=== PATIENT | male | born 1960 | race Caucasian/White ===

== ENCOUNTER 2021-07-28 21:27 | Inpatient (IN) | payer MEDICARE, OTHER ==
[~2021-07-28] VITALS: Ht 180.3 cm; Wt 88.9 kg
--- NOTE | 2021-07-28 21:50 | NUR ---
PATIENT BIB [facility] FROM [facility] ON A 5150 HOLD TO BE MEDICALLY CLEARED TO BE ADMITTED TO [facility].
[2021-07-28] MEDS ORDERED: LOSA50TA39 PO (22:06)
[2021-07-28] MEDS ORDERED: FOLI1TAB94 PO (22:06)
[2021-07-28] MEDS ORDERED: DULO60CA45 PO (22:06)
[2021-07-28] MEDS ORDERED: QUET25TA PO (22:06)
[2021-07-28] MEDS ORDERED: MAGN400O6 PO (22:06)
[2021-07-28] MEDS ORDERED: MULT-213 PO (22:06)
[2021-07-28] MEDS ORDERED: GABA-532 PO (22:06)
[2021-07-28] MEDS ORDERED: LORA2TAB95 PO (22:06)
[2021-07-28] MEDS ORDERED: HYDR-3972 PO (22:06)
[2021-07-28] MEDS ORDERED: OXYC30TA2 PO (22:06)
[2021-07-28] MEDS ORDERED: ACET-73 PO (22:06)
[2021-07-28] MEDS ORDERED: THIA100T74 PO (22:06)
--- NOTE | 2021-07-28 22:51 | NUR ---
Transfered to [facility] via [facility] ambulance team with no distress noted.
--- NOTE | 2021-07-28 22:53 | NUR ---
Patient medically cleared. Pt. admitted to MHU, room 145B , under care of Dr. Stokes, and Dr. Tate. Belongs List completed.
[2021-07-28] MEDS ORDERED: MAGNESIUM HYDROXIDE 30 ML LIQUID UDC PO PRN (23:15)
[2021-07-28] MEDS ORDERED: MAG HYDROX/AL HYDROX/SIMETH 30 ML LIQUID UDC PO PRN (23:15)
[2021-07-28] MEDS ORDERED: TEMAZEPAM 7.5 MG CAPSULE PO PRN (23:15)
[2021-07-28 23:45] VITALS: BP 136/104
[2021-07-29] MEDS: LORAZEPAM 1 MG TABLET PO PRN ×4 (05:25→23:42)
[2021-07-29 07:30] VITALS: BP 161/103
[2021-07-29 07:59] LABS: BILIRUBIN,TOTAL 0.3 mg/dL (0.2-1.0); POTASSIUM 3.9 mmol/L (3.5-5.1); TOTAL PROTEIN, SERUM 7.9 g/dL (6.4-8.2)
[2021-07-29] MEDS ORDERED: [UNRECOGNIZED DRUG - CODE] PO (10:17)
[2021-07-29] MEDS: FOLIC ACID 1 MG TABLET PO SCH (11:11)
[2021-07-29] MEDS: OXYCODONE HCL 10 MG TAB.SR.12H PO SCH ×2 (11:12→20:08)
[2021-07-29] MEDS: LOSARTAN POTASSIUM 50 MG TABLET PO SCH ×2 (11:12→20:05)
[2021-07-29] MEDS: MULTIVIT, IRON, MIN NO. 8, FA TABLET PO SCH (11:12)
[2021-07-29] MEDS: THIAMINE HCL 100 MG TABLET PO SCH (11:13)
--- NOTE | 2021-07-29 14:28 | NUR ---
VISHNU Family Contact: SW met and spoke with pt's Jennie Santizo ([phone]) and discussed treatment and discharge plan.
--- NOTE | 2021-07-29 14:28 | NUR ---
VISHNU Initial Discharge Plan: [place] resides [place] [address] [place] [address] ([phone]) with his Jennie Santizo ([phone]). Pt would like to return home upon discharge. VISHNU will continue to work with pt, family, and MD to ensure a safe and proper discharge plan.
--- NOTE | 2021-07-29 14:30 | NUR ---
Firearms Report: Gleason Operator completed and submitted a [employer] firearms report for 5150danger to himself certifications. A copy of report has been placed in patient chart.
--- NOTE | 2021-07-29 14:30 | NUR ---
Brief Substance Abuse Intervention: Patient was provided with a brief substance abuse intervention and referred to the following substance abuse programs: [facility] Substance Abuse Self-helpline ([phone]); [facility] [address] [place] [address] ([phone]); [facility] [address] [facility] [address] ([phone]); [facility] ([phone]); [facility] ([phone]); [facility] ([phone]); [facility] ([phone]).
[2021-07-29] MEDS ORDERED: Medication Not On Formulary EA (Oxycodone Hcl 30 MG) PO SCH (17:00)
[2021-07-29] MEDS ORDERED: GABAPENTIN 300 MG CAPSULE PO SCH (17:00)
[2021-07-29 17:15] VITALS: BP 144/91
--- NOTE | 2021-07-29 18:51 | NUR ---
Patient anxious at the beginning of the shift regarding medications. Given anxiety medication x2 during shift. visited patient. Complaint with medications.
[2021-07-29 20:00] VITALS: BP 156/95
[2021-07-29] MEDS ORDERED: TRAZODONE 50 MG TABLET PO SCH (21:00)
[2021-07-29] MEDS ORDERED: TRAZODONE 50 MG TABLET PO ONE (21:00)
[2021-07-29] MEDS ORDERED: TRAZODONE 100 MG TABLET PO ONE (21:00)
[2021-07-30] MEDS: HYDROCODONE/APAP 5-325MG TABLET PO PRN ×2 (01:09→23:07)
[2021-07-30] MEDS ORDERED: TEMAZEPAM 7.5 MG CAPSULE PO PRN (02:00)
--- NOTE | 2021-07-30 05:07 | NUR ---
Restoril HS repeated dose order obtained from Dr. Stokes,. administered at around 0205. Per pharmacist karyn Matias to give after scanning and clicking original HSPRN entry on eMAR since HS repeated dose order was still unverified at the time.
[2021-07-30 08:20] VITALS: BP 149/96
[2021-07-30] MEDS: LOSARTAN POTASSIUM 50 MG TABLET PO SCH ×2 (08:24→20:07)
[2021-07-30] MEDS: DULOXETINE 60 MG CAPSULE.DR PO SCH (08:24)
[2021-07-30] MEDS: FOLIC ACID 1 MG TABLET PO SCH (08:24)
[2021-07-30] MEDS: THIAMINE HCL 100 MG TABLET PO SCH (08:25)
[2021-07-30] MEDS: MULTIVIT, IRON, MIN NO. 8, FA TABLET PO SCH (08:25)
[2021-07-30] MEDS: OXYCODONE HCL 10 MG TAB.SR.12H PO SCH ×2 (09:13→20:08)
[2021-07-30] MEDS: LORAZEPAM 1 MG TABLET PO PRN (09:46)
--- NOTE | 2021-07-30 11:09 | NUR ---
Gps/Bus Girl- Emotionally labile, crying spells noted, verbalized feelings of being depressed. Complained of chronic pain on his feet, oxycodone eases his pain but not completely resolved. Attend his group therapy this am. Complained of feeling anxious ,Ativan 1 mg po. was able to relaxed and stayed in his room to rest part of his morning. Wants to talk to Dr Stokes
--- NOTE | 2021-07-30 15:04 | NUR ---
Gps/Head Usher- came in to visit, and brought in electric shaver, placed in his locker.
[2021-07-30] MEDS: ACETAMINOPHEN 325 MG TABLET PO PRN (15:22)
[2021-07-30] MEDS: AMLODIPINE 5 MG TABLET PO SCH (15:40)
--- NOTE | 2021-07-30 16:08 | NUR ---
Gps/Plastic Surgery Nurse- Complained of headache, requesting tylenol 650 mg po, administered , verbalized adequate relief. and patient's mother in the activity room visiting. pt.
[2021-07-30 16:10] VITALS: BP 153/100
[2021-07-30 20:00] VITALS: BP 160/97
[2021-07-30] MEDS: TRAZODONE 100 MG TABLET PO SCH (20:07)
[2021-07-30] MEDS: ATORVASTATIN 40 MG TABLET PO SCH (20:07)
[2021-07-30 20:30] VITALS: BP 145/89
[2021-07-30] MEDS: TEMAZEPAM 7.5 MG CAPSULE PO PRN (21:46)
[2021-07-31] MEDS: LORAZEPAM 1 MG TABLET PO PRN ×2 (03:43→10:40)
--- NOTE | 2021-07-31 03:45 | NUR ---
patient c/o anxiety. ativan 1 mg po given.
--- NOTE | 2021-07-31 04:45 | NUR ---
patient is calm now. prn effective for anxiety.
--- NOTE | 2021-07-31 04:54 | NUR ---
GPS: Remain calm and cooperative with meds and care. no behavior issue noted continue plan of care.
--- NOTE | 2021-07-31 06:42 | NUR ---
slept 3.30 hrs through the night after sleeping meds given.
[2021-07-31 07:30] VITALS: BP 163/113
[2021-07-31] MEDS: MULTIVIT, IRON, MIN NO. 8, FA TABLET PO SCH (08:04)
[2021-07-31] MEDS: DULOXETINE 60 MG CAPSULE.DR PO SCH (08:04)
[2021-07-31] MEDS: THIAMINE HCL 100 MG TABLET PO SCH (08:04)
[2021-07-31] MEDS: FOLIC ACID 1 MG TABLET PO SCH (08:05)
[2021-07-31] MEDS: AMLODIPINE 5 MG TABLET PO SCH (08:48)
[2021-07-31] MEDS: LOSARTAN POTASSIUM 50 MG TABLET PO SCH ×2 (08:48→20:25)
[2021-07-31 09:00] VITALS: BP 149/97
[2021-07-31] MEDS ORDERED: AMLODIPINE 5 MG TABLET PO SCH (09:00)
[2021-07-31] MEDS: OXYCODONE HCL 10 MG TAB.SR.12H PO SCH ×2 (09:27→20:24)
--- NOTE | 2021-07-31 10:22 | NUR ---
PT QUITE NEEDY AT TIMES. FREQUENTLY AT NURSES STATION WITH REQUESTS (PHONE, MEDS, ETC). STATES HE NEEDS A WHEELCHAIR WHEN HE HAS PERFECTLY APPROPRIATE GAIT. STATES HE NEEDS A WHEELCHAIR TO GET AROUND BECAUSE HE HAS FOOT PAIN BUT REFUSES TO SIT OR LAY DOWN, INSTEAD FREQUENTLY AMBULATING IN UNIT. PT EXHIBITING QUITE BIZARRE BEHAVIORS AT TIMES, GOING INTO NURSES STATION AND GETTING DOWN TO HIS KNEES ON THE FLOOR BECAUSE "I WANT TO SHOW YOU THAT IT'S HARD FOR ME TO STAND BECAUSE MY FEET HURT." PT APPEARS QUITE ANXIOUS AT TIMES, NURSE TO ADMINISTER ATIVAN FOR ANXIETY. PT HAS EPISODES OF CRYING SPELLS, STATES "YOU JUST DON'T UNDERSTAND WHAT IT'S LIKE BEING ME." REMAINS QUITE DEPRESSED AND ANXIOUS.
--- NOTE | 2021-07-31 10:30 | NUR ---
Gps/Dance Master- Emotionally labile, anxious, crying spells noted. Kept coming out of his room complaining of burning pain on his feet, requesting to use a wheel chair. Claimed he uses wheel chair at home, and if its ok, he can have his bring the wheel chair. Instructed to rest his feet , in bed., claimed he cant stay in bed all day. Came to Nurses station kneeling down on his right knee , crying. Offered ativan 1 mg po. Per patient this place is making him crazy him crazy.
--- NOTE | 2021-07-31 12:09 | NUR ---
Gps/Automotive Software Engineer- Patient didnt stay in bed as requested, noted sitting in his group participating
--- NOTE | 2021-07-31 15:26 | NUR ---
Gps/Woven Paper Hat Mender- Patient's sister in to visit .
[2021-07-31 16:00] VITALS: BP 151/99
--- NOTE | 2021-07-31 17:01 | NUR ---
Gps/Survey Superintendent- came in to visit after patient's sister left Patient interacting well with his family .
[2021-07-31] MEDS: ACETAMINOPHEN 325 MG TABLET PO PRN (17:18)
[2021-07-31 20:00] VITALS: BP 150/95
[2021-07-31] MEDS: TRAZODONE 100 MG TABLET PO SCH (20:24)
[2021-07-31] MEDS: ATORVASTATIN 40 MG TABLET PO SCH (20:24)
[2021-07-31] MEDS: TEMAZEPAM 7.5 MG CAPSULE PO PRN (22:36)
[2021-08-01] MEDS: LORAZEPAM 1 MG TABLET PO PRN (03:36)
[2021-08-01 08:39] VITALS: BP 145/94
[2021-08-01] MEDS: LOSARTAN POTASSIUM 50 MG TABLET PO SCH (08:40)
[2021-08-01] MEDS: FOLIC ACID 1 MG TABLET PO SCH (08:40)
[2021-08-01] MEDS: THIAMINE HCL 100 MG TABLET PO SCH (08:40)
[2021-08-01] MEDS: DULOXETINE 60 MG CAPSULE.DR PO SCH (08:40)
[2021-08-01] MEDS: MULTIVIT, IRON, MIN NO. 8, FA TABLET PO SCH (08:40)
[2021-08-01 08:41] VITALS: BP 145/94
[2021-08-01] MEDS: AMLODIPINE 5 MG TABLET PO SCH (08:41)
[2021-08-01] MEDS: OXYCODONE HCL 10 MG TAB.SR.12H PO SCH (08:41)
--- NOTE | 2021-08-01 09:20 | NUR ---
Discharge Note: Patient will be discharged back home [address] [place] [address] ([phone]) with his Jennie Santizo ([phone]) who is aware and agreeable with discharge plan and will bulk picker the patient today at 12PM. Patient presents alert and oriented x4 and is aware and agreeable with discharge plan. Patient denies suicidal or homicidal ideation. Pt mood presents euthymic with congruent affect. Patient will be following up with his primary physician Dr. Vivek Baldwin [address] [place] [address] [address], [place] [address] ([phone]) who will be referring the patient for outpatient psychiatric services. Pts , Jennie stated she will be following up with the patients outpatient resources and referrals. Patient was provided with a brief substance abuse intervention and referred to the following substance abuse programs: [facility] Substance Abuse Self-helpline ([phone]); [facility] [address] [place] [address] ([phone]); [facility] [address] [facility] [address] ([phone]); [facility] ([phone]); [facility] ([phone]); [facility] ([phone]); [facility] ([phone]).
--- NOTE | 2021-08-01 12:15 | NUR ---
GPS: Nursing Notes: Discharge Notes: Patient is awake and responding to his name, cooperative with nursing care, compliant with his medications, following staff directions, A/Ox4, denies SI/HI, denies AH/VH, denies pain or discomfort, denies SOB, [place] [address] [place] [address] . Patient's - Jennie Santizo picked patient up, instructions and prescriptions given to patient, took all his belongings with him. Patient will be following up with his primary physician Dr. Vivek Baldwin [address] [place] [address] [address], [place] [address] ([phone]) who will be referring the patient for outpatient psychiatric services. Patient was provided with a brief substance abuse intervention and referred to the following substance abuse programs: [facility] Substance Abuse Self-helpline ([phone]); [facility] [address] [place] [address] ([phone]); [facility] [address] [facility] [place] [address] ([phone]); [facility] ([phone]); [facility] ([phone]); [facility] ([phone]); [facility] ([phone]).
== END 2021-08-01 12:15 | disposition home or self-care (01) | DRG 881 ==
LOC: ER 21:30 → GPS 22:47
PROVIDERS: ADMIT Psychiatry & Neurology Psychiatry; ATTEND Nurse Practitioner Family
DX: F32.A Depression, unspecified (principal); E78.5 Hyperlipidemia, unspecified; F41.9 Anxiety disorder, unspecified; G89.29 Other chronic pain; I10 Essential (primary) hypertension; T40.2X2D Poisoning by other opioids, intentional self-harm, subsequent encounter; Z20.822 Contact with and (suspected) exposure to COVID-19
CPT/HCPCS: 36415; 97161; A4663